=== PATIENT | female | born 1945 | race Caucasian/White ===

== ENCOUNTER 2024-06-27 12:05 | Outpatient (CLI) | payer OTHER, SELFPAY ==
--- OUTSIDE RECORDS SUMMARY | 2024-06-23 15:19 | XMS_ITS | Patient Health Record ---
Author Organization [facility] Address [address] [place] [address] Care Team Providers Care [employer] Administrator Name Role Phone CecilioЕлена lawrence Primary Care Provider [phone] ALLERGIES Allergen (clinical drug ingredient) Drug/Non Drug Allergy documented on EMR Reaction Allergy Type Onset Date Status amoxicillin amoxicillin Unknown Drug Allergy Act jaye clarithromycin clarithromycin Unknown Drug Allergy Active REASON FOR REFERRAL No Information MEDICATIONS Medication SIG (Take, Route, Frequency, Duration) Notes Start Date End Date Status fluticasone nasal 50 mcg/inh 1 spray both nostrils intranasally twice daily for 30 day(s) Active acetaminophen 500 mg 1 orally every 6 hours PRN Active Tab-A-Marissa Multiple Vitamins 1 tab(s) orally once a day for 30 day(s) Active acetaminophen 500 mg 1 tab orally BID and Q6hrs prn for 14 Active loratadine 10 mg 1 tab(s) orally once a day Active Tums 500 2 tablets every 3 hours as needed for reflux Active docusate sodium 100 mg 1 tab(s) orally 2 times a day for 30 days Active Breo Ellipta 200 mcg-25 mcg/inh 1 puff(s) inhaled once a day for 30 day(s) 08/31/2020 Active lisinopril 40 mg 1 tab(s) orally once a day for 30 days Active Metoprolol Tartrate 100 mg 1 tab orally 2 times a day for 30 days 09/20/2020 Active pramipexole 0.125 mg 1 tab(s) orally at bedtime for 14 days Active hydroCHLOROthiazide 25 mg 1 tab(s) orall y once a day for 30 day(s) Active GuaiFENesin DM 10 mg-100 mg/5 mL 10 mL orally every 4 hours prn 09/24/2019 Active MiraLax - 17 g orally QOD and QD PRN the other days for 30 Active tamsulosin 0.4 mg 1 cap(s) orally once a day for 30 day(s) Active Vitamin D3 1000 intl units 1 tab(s) orally once a day for 30 day(s) Not-Taking nystatin topical 009865 units/g 1 nilo applied topically BID until resolved and then resume BID PRN for 30 days Active IMMUNIZATIONS Vaccine Route Administration Date Status Comme nts Influenza (>6 mo) Unknown 04/09/2018 Administered Influenza (>6 mo) Unknown 03/11/2020 Administered SOCIAL HISTORY Tobacco Use: Social History Observation Description Date Details (start date - stop date) Never Smoker NA - NA Sex Assigned At : Social History Observation Description Sex Assigned At Unknown Tobacco assessment Question Answer Notes Are you a: never smoker PLAN OF TREATMENT No Information Insurance Providers Payer Name Payer Address Payer Phone Subscriber Number Group Number Insured Name Patient Relationship to Insured Coverage Start Date Coverage End Date [facility] DO NOT USE THIS [id number] [place] [address] [phone] [id number] Gavi Malik Self - patient is the insured MEDICAL (GENERAL) HISTORY Medical History History ICD Code osteoarthritis depression esophageal reflux breast cancer hypertension
--- NOTE | 2024-06-27 13:48 | W.ANESCHARGE ---
Anesthesia Charges Start Date/Time Anesthesia Start Date: 06/27/24 Anesthesia Start Time: 13:25 Stop Date/Time Anesthesia Stop Date: 06/27/24 Anesthesia Stop Time: 13:48
== END 2024-06-27 12:06 | disposition home or self-care (01) ==
PROVIDERS: Visit Provider Internal Medicine Gastroenterology
DX: R13.10 Dysphagia, unspecified (principal); K22.9 Disease of esophagus, unspecified; Q39.6 Congenital diverticulum of esophagus
CPT/HCPCS: 00731; 43235; J2704; J3490